=== PATIENT | female | born 1995 | race Caucasian/White ===

== ENCOUNTER 2024-05-25 09:34 | Emergency (ER) | payer OTHER ==
--- NOTE | 2024-05-25 10:23 | ED ---
Headache HPI - General Chief Complaint: Headache Stated Complaint: 23wks preg/migraine Time Seen by Provider: 05/25/24 09:48 Source: patient, RN notes reviewed Mode of arrival: ambulatory Limitations: no limitations - History of Present Illness Initial Comments: This is a 28-year-old female, [id number], with no significant history presenting to the emergency department at approximately 23 weeks gestation for headache over the past 3 days. Patient states that she has also been experiencing congestion, rhinorrhea, body aches, cough. She denies blurry/double vision, right upper quadrant abdominal pain, or history of migraine headaches. She denies abdominal pain, nausea, vomiting, urinary complaints. Patient follows with OB team at [facility]. denies previous gestational hypertension, gestational diabetes, preeclampsia or eclampsia - Related Data Allergies Allergy/AdvReac Type Severity Reaction Status Date / Time clindamycin Allergy Rash/Hives Verified 05/25/24 09:39 Review of Systems ROS Statement: Those systems with pertinent positive or pertinent negative responses have been documented in the HPI. ROS Other: All systems not noted in ROS Statement are negative. Past Medical History Past Medical History: No Reported History History of Any Multi-Drug Resistant Organisms: None Reported Past Surgical History: Section Past Psychological History: No Psychological Hx Reported Smoking Status: Never smoker Past Alcohol Use History: None Reported Past Drug Use History: None Reported General Exam Limitations: no limitations General appearance: alert, in no apparent distress Eye exam: Present: normal appearance, PERRL, EOMI. Absent: scleral icterus, conjunctival injection, periorbital swelling ENT exam: Present: normal exam, mucous membranes moist Neck exam: Present: normal inspection. Absent: tenderness, meningismus, lymphadenopathy Respiratory exam: Present: normal lung sounds bilaterally. Absent: respiratory distress, wheezes, rales, rhonchi, stridor Cardiovascular Exam: Present: regular rate, normal rhythm, normal heart sounds. Absent: systolic murmur, diastolic murmur, rubs, gallop, clicks GI/Abdominal exam: Present: soft, normal bowel sounds. Absent: distended, tenderness, guarding, rebound, rigid Extremities exam: Present: normal inspection, full ROM, normal capillary refill. Absent: tenderness, pedal edema, joint swelling, calf tenderness Back exam: Present: normal inspection Neurological exam: Present: alert, oriented X3, CN II-XII intact Skin exam: Present: warm, dry, intact, normal color. Absent: rash Course Vital Signs 05/25/24 05/25/24 09:37 13:22 Temperature 98.4 F 98.9 F Pulse Rate 73 81 Respiratory 20 14 Rate Blood Pressure 130/84 126/68 O2 Sat by Pulse 99 99 Oximetry Medical Decision Making - Medical Decision Making Was pt. sent in by a medical professional or institution (, MAIKEL, DRUG ABUSE SOCIAL WORKER, urgent care, hospital, or retirement...) When possible be specific @ -No Did you speak to anyone other than the patient for history (EMS, parent, family, police, friend...)? What history was obtained from this source @ -No Did you review nursing and triage notes (agree or disagree)? Why? @ -I reviewed and agree with nursing and triage notes Were old charts reviewed (outside hosp., previous admission, EMS record, old EKG, old radiological studies, urgent care reports/EKG's, retirement records)? Report findings @ -No old charts were reviewed Differential Diagnosis (chest pain, altered mental status, abdominal pain women, abdominal pain men, vaginal bleeding, weakness, fever, dyspnea, syncope, headache, dizziness, GI bleed, back pain, seizure, CVA, palpatations, mental health, musculoskeletal)? @ -Differential Headache: Migraine, tension, cluster, carbon monoxide, central venous thrombosis, pension karma temporal arteritis, acute closure glaucoma, intercranial hemorrhage, mastoiditis, sinusitis, head injury, this is not meant to be an all-inclusive list. EKG interpreted by me (3pts min.). @ -None X-rays interpreted by me (1pt min.). @ -None done CT interpreted by me (1pt min.). @ -None done U/S interpreted by me (1pt. min.). @ -None done What testing was considered but not performed or refused? (CT, X-rays, U/S, labs)? Why? @ -None What meds were considered but not given or refused? Why? @ -None Did you discuss the management of the patient with other professionals (professionals i.e. , MAIKEL, DRUG ABUSE SOCIAL WORKER, lab, RT, psych nurse, social problems specialist, embroidery worker, teacher, chief juvenile probation officer, cyanide case hardener)? Give summary @ -No Was smoking cessation discussed for >3mins.? @ -No Was critical care preformed (if so, how long)? @ -No Were there social determinants of health that impacted care today? How? (Homelessness, low income, unemployed, alcoholism, drug addiction, transportation, low edu. Level, literacy, decrease access to med. care, [place] [facility], rehab)? @ -No Was there de-escalation of care discussed even if they declined (Discuss DNR or withdrawal of care, Hospice)? DNR status @ -No What co-morbidities impacted this encounter? (DM, HTN, Smoking, COPD, CAD, Cancer, CVA, ARF, Chemo, Hep., AIDS, mental health diagnosis, sleep apnea, m orbid obesity)? @ -None Was patient admitted / discharged? Hospital course, mention meds given and r oute, prescriptions, significant lab abnormalities, going to OR and other pertinent info. @ -Discharge. 28-year-old female 23 weeks gestation with headache. Neurological examination no acute deficits. Negative for brudzinski and Kernig sign with no concern for meningitis. vitals are stable. Patient is provided with migraine cocktail including fluids, Tylenol, Benadryl, and magnesium. labs reveal mild dehydration with a CO2 of 19, chloride 111, urinalysis with trace ketones. Negative COVID, flu, RSV. On reevaluation after medication ministration patient states that she is feeling better. Recommend that patient increase hydration at home and continue Tylenol as needed for pain up to 1 g every 8 hours. Patient has follow-up appointment scheduled with OB and recommend she continues to follow with OB. Discussed with Dr. Muniz Undiagnosed new problem with uncertain prognosis? @ -No Drug Therapy requiring intensive monitoring for toxicity (Heparin, Nitro, I nsulin, Cardizem)? @ -No Were any procedures done? @ -No Diagnosis/symptom? @ -Headache during , 23 weeks gestation Acute, or Chronic, or Acute on Chronic? @ -acute Uncomplicated (without systemic symptoms) or Complicated (systemic symptoms)? @ -uncomplicated Side effects of treatment? @ -No Exacerbation, Progression, or Severe Exacerbation? @ -No Poses a threat to life or bodily function? How? (Chest pain, USA, PA, pneumonia, PE, COPD, DKA, ARF, appy, cholecystitis, CVA, Diverticulitis, Homicidal, Suicidal, threat to staff... and all critical care pts) @ -No - Lab Data Result diagrams: 05/25/24 10:36 05/25/24 10:36 Lab Results 05/25/24 05/25/24 05/25/24 Range/Units 10:36 10:36 10:36 WBC 11.0 H (3.8-10.6) k/uL RBC 3.76 L (3.80-5.40) m/uL Hgb 11.3 L (11.4-16.0) gm/dL Hct 33.9 L (34.0-46.0) % MCV 90.0 (80.0-100.0) fL MCH 30.1 (25.0-35.0) pg MCHC 33.4 (31.0-37.0) g/dL RDW 13.4 (11.5-15.5) % Plt Count 279 (150-450) k/uL MPV 6.9 PT 10.0 (10.0-12.5) sec INR 0.9 (<1.2) APTT 23.5 (22.0-30.0) sec Sodium (137-145) mmol/L Potassium (3.5-5.1) mmol/L Chloride (98-107) mmol/L Carbon Dioxide (22-30) mmol/L Anion Gap mmol/L BUN (7-17) mg/dL Creatinine (0.52-1.04) mg/dL Est GFR (CKD-EPI)AfAm (>60 ml/min/1.73 sqM) Est GFR (CKD-EPI)NonAf (>60 ml/min/1.73 sqM) Glucose (74-99) mg/dL Calcium (8.4-10.2) mg/dL Magnesium (1.6-2.3) mg/dL Total Bilirubin (0.2-1.3) mg/dL AST (14-36) U/L ALT (4-34) U/L Alkaline Phosphatase (38-126) U/L Total Protein (6.3-8.2) g/dL Albumin (3.5-5.0) g/dL Urine Color Colorless Urine Appearance Clear (Clear) Urine pH 6.0 (5.0-8.0) Ur Specific [place] 1.007 (1.001-1.035) Urine Protein Negative (Negative) Urine Glucose (UA) Negative (Negative) Urine Ketones Trace H (Negative) Urine Blood Negative (Negative) Urine Nitrite Negative (Negative) Urine Bilirubin Negative (Negative) Urine Urobilinogen <2.0 (<2.0) mg/dL Ur Leukocyte Esterase Trace H (Negative) Urine RBC <1 (0-5) /hpf Urine WBC 2 (0-5) /hpf Ur Squamous Epith Cells 2 (0-4) /hpf Urine Mucus Rare H (None) /hpf Influenza Type A (PCR) (Not Detectd) Influenza Type B (PCR) (Not Detectd) RSV (PCR) (Not Detectd) SARS-CoV-2 (PCR) (Not Detectd) 05/25/24 05/25/24 Range/Units 10:36 10:45 WBC (3.8-10.6) k/uL RBC (3.80-5.40) m/uL Hgb (11.4-16.0) gm/dL Hct (34.0-46.0) % MCV (80.0-100.0) fL MCH (25.0-35.0) pg MCHC (31.0-37.0) g/dL RDW (11.5-15.5) % Plt Count (150-450) k/uL MPV PT (10.0-12.5) sec INR (<1.2) APTT (22.0-30.0) sec Sodium 134 L (137-145) mmol/L Potassium 4.5 (3.5-5.1) mmol/L Chloride 111 H (98-107) mmol/L Carbon Dioxide 19 L (22-30) mmol/L Anion Gap 4 mmol/L BUN 5 L (7-17) mg/dL Creatinine 0.64 (0.52-1.04) mg/dL Est GFR (CKD-EPI)AfAm >90 (>60 ml/min/1.73 sqM) Est GFR (CKD-EPI)NonAf >90 (>60 ml/min/1.73 sqM) Glucose 93 (74-99) mg/dL Calcium 9.1 (8.4-10.2) mg/dL Magnesium 1.8 (1.6-2.3) mg/dL Total Bilirubin 0.5 (0.2-1.3) mg/dL AST 14 (14-36) U/L ALT 10 (4-34) U/L Alkaline Phosphatase 52 (38-126) U/L Total Protein 6.6 (6.3-8.2) g/dL Albumin 3.5 (3.5-5.0) g/dL Urine Color Urine Appearance (Clear) Urine pH (5.0-8.0) Ur Specific [place] (1.001-1.035) Urine Protein (Negative) Urine Glucose (UA) (Negative) Urine Ketones (Negative) Urine Blood (Negative) Urine Nitrite (Negative) Urine Bilirubin (Negative) Urine Urobilinogen (<2.0) mg/dL Ur Leukocyte Esterase (Negative) Urine RBC (0-5) /hpf Urine WBC (0-5) /hpf Ur Squamous Epith Cells (0-4) /hpf Urine Mucus (None) /hpf Influenza Type A (PCR) Not Detected (Not Detectd) Influenza Type B (PCR) Not Detected (Not Detectd) RSV (PCR) Not Detected (Not Detectd) SARS-CoV-2 (PCR) Not Detected (Not Detectd) Disposition Clinical Impression: Headache, 23 weeks gestation of Disposition: HOME SELF-CARE Condition: Good Instructions (If sedation given, give patient instructions): Acute Headache (ED) Additional Instructions: Please return to the Emergency Department if symptoms worsen or any other zeb rns. Due to increased oral hydration. You may take up to 1 g of Tylenol as needed every 8 hours for pain relief. Follow-up as scheduled with OB for further evaluation. Is patient prescribed a controlled substance at d/c from ED?: No Referrals: Shon Renae MD [Primary Care Provider] - 1-2 days Time of Disposition: 12:33
[2024-05-25 10:41] LABS: HCT 33.9 % (34.0-46.0); HGB 11.3 gm/dL (11.4-16.0); MCH 30.1 pg (25.0-35.0); MCHC 33.4 g/dL (31.0-37.0); Mean Platelet Volume 6.9; Platelet Count 279 k/uL (150-450); RBC 3.76 m/uL (3.80-5.40); RDW 13.4 % (11.5-15.5)
[2024-05-25 10:50] LABS: INR 0.9 (<1.2); Partial Thromboplastin Time 23.5 sec (22.0-30.0)
[2024-05-25 11:03] LABS: ALT 10 U/L (4-34); AST 14 U/L (14-36); African American GFR (CKD) >90 (>60 ml/min/1.73 sqM); Albumin 3.5 g/dL (3.5-5.0); Alkaline Phosphatase 52 U/L (38-126); Anion Gap 4 mmol/L; Blood Urea Nitrogen 5 mg/dL (7-17); Calcium 9.1 mg/dL (8.4-10.2); Carbon Dioxide 19 mmol/L (22-30); Chloride 111 mmol/L (98-107); Glucose 93 mg/dL (74-99); Magnesium 1.8 mg/dL (1.6-2.3); Non-African American GFR(CKD) >90 (>60 ml/min/1.73 sqM); Potassium 4.5 mmol/L (3.5-5.1); Sodium 134 mmol/L (137-145); Total Bilirubin 0.5 mg/dL (0.2-1.3); Total Protein 6.6 g/dL (6.3-8.2)
[2024-05-25 11:32] LABS: Appearance,Urine Clear (Clear); Bilirubin,Urine Negative (Negative); Blood,Urine Negative (Negative); Color,Urine Colorless; Glucose,Urine (UA) Negative (Negative); Ketones,Urine Trace (Negative); Leukocyte Esterase,Urine Trace (Negative); Mucus,Urine Rare /hpf; Nitrite,Urine Negative (Negative); Protein,Urine Negative (Negative); RBC,Urine <1 /hpf (0-5); Specific Gravity,Urine 1.007 (1.001-1.035); Squamous Epithelial Cell,Urine 2 /hpf (0-4); Urobilinogen,Urine <2.0 mg/dL (<2.0); WBC,Urine 2 /hpf (0-5)
[2024-05-25] MEDS: ACETAMINOPHEN TAB 500 MG TAB PO STA (11:39)
[2024-05-25] MEDS: ONDANSETRON 4 MG/2 ML VIAL IVP STA (11:40)
[2024-05-25] MEDS: MAGNESIUM SULFATE-D5W PMX 1 GM in DEXTROSE/WATER 1 100ML.BAG IVPB ONE (11:40)
[2024-05-25] MEDS: diphenhydrAMINE 50 MG/ML 1 ML VIAL IVP STA (11:40)
[2024-05-25] MEDS: SODIUM CHLORIDE 0.9% 1,500 ML IV STA (11:41)
[2024-05-25 13:23] VITALS: BP 126/68; PULSE 81; RESP 14; TEMP 98.9
== END 2024-05-25 13:40 | disposition home or self-care (01) ==
LOC: EC 09:34
DX: O99.352 Diseases of the nervous system complicating pregnancy, second trimester (principal); R51.9 Headache, unspecified; Z88.1 Allergy status to other antibiotic agents; Z3A.23 23 weeks gestation of pregnancy
CPT/HCPCS: 36415; 80053; 83735; 85027; 85610; 85730; 81001; 87636; 99284; 96365; 96366; 96375 ×2; J1200; J2405; J3475

== ENCOUNTER 2024-08-24 00:20 | Outpatient (CLI) | payer OTHER ==
[2024-08-24] MEDS: LACTATED RINGERS 1,000 ML IV ONE (00:50)
[2024-08-24] MEDS: LACTATED RINGERS 1,000 ML IV SCH (01:50)
[2024-08-24 05:22] VITALS: BP 137/81; PULSE 74; RESP 16; TEMP 97.4
--- NOTE | 2024-08-28 00:12 | P.MSEPDOC ---
Presenting Problems - Arrival Data Date of Arrival on Unit: 08/24/24 Time of Arrival on Unit: 00:20 Mode of Transport: EMS - Complaint OB-Reason for Admission/Chief Complaint: Possible Onset of Labor Comment: contractions for 6 minutes apart for hours Medical History - Information : 5 Para: 3 Term: 3 : 0 Abortions: Spontaneous or Elective: 1 Number of Living Children: 3 - Gestational Age Gestational Age by DIANA (wks/days): 37 Weeks and 0 Days - History Complications: Prior Review of Systems - Review of Systems Constitutional: No problems Breast: No problems ENT: No problems Cardiovascular: No problems Respiratory: No problems Gastrointestinal: No problems Genitourinary: No problems Musculoskeletal: No problems Neurological: No problems Skin: No problems Vital Signs - Temperature Temperature: 97.4 F Temperature Source: Oral - Pulse Right Brachial Pulse Rate: 74 Pulse Assessment Method: Automatic Cuff - Respirations Respiratory Rate: 16 Oxygen Delivery Method: Room Air O2 Sat by Pulse Oximetry: 100 - Blood Pressure Right Arm Blood Pressure: 137/81 Blood Pressure Mean: 99 Blood Pressure Source: Automatic Cuff Medical Screen Scoring - Cervical Exam Dilation (cm): 1 Effacement (%): 70 Station: -2 Membranes: Intact - Uterine Contractions Frequency From (mins): 2 Frequency To (mins): 5 Duration From (seconds): 50 Duration To (seconds): 70 Intensity: Moderate Resting: Soft to palpation - Assessment - Baby A Baseline FHR: 145 Heart Rate - NICHD Category: Category I (Normal) NST: Reactive Physician Notification - Physician Notified Physician Notified Date: 08/24/24 Physician Notified Time: 00:40 Physician: Dash Mckee New Order Received: Yes - Notification Comment Comment: 0040- Dr. Flynn called with report on patient that presents to triage by EMS due to transportation issues. Patient states that she has been having contractions for 6 minutes apart for hours. Cervical exam /-2, contractions 2 minutes apart. Patient has a baseline of 150, variables down to 90bpm noted upon application of ultrasound. Patient repositioned and heart tones now 150 baseline with mininal varability. Patient to be rechecked in 1 hour and IV fluids ordered. 0200- report given to Dr. Mckee. Patients cervical exam remains the same after 1 hour. Contractions 2-4 minutes apart. Patient rates pain 6/10 but talking through contractions. Blood pressures reviewed. Patient to be recehcked in a few hours. 0500- Dr. Mckee called with report. heart tones have been cat 1 since last time report was given, patient continues to contract every 2-5minutes, patient has beel sleeping and appears comfortable, and cervical exam remains unchanged. Patient to be discharged home. Maternal Triage Index - Stat/Priority 1 Stat Priority 1: No - Urgent/Priority 2 Urgent Priority 2: No - Prompt/Priority 3 Prompt Priority 3: No - Non-Urgent/Priority 4 Non-Urgent Priority 4: Yes Criteria Met for Priority 4: 37 0/7 contractions Disposition - Disposition OB Disposition: Discharge to home Discharge Date: 08/24/24 Discharge Time: 05:30 I agree with the RN Medical Screening Exam: Yes Physician's MSE Comment: I have neither seen nor examined the patient. Case reviewed; plan agreed upon as documented in EMR&OBIX.: Yes Diagnosis: RELATED CONDITIONS, UNSPECIFIED, THIRD TRIMESTER
== END 2024-08-24 05:30 ==
LOC: FBPOP 00:20
PROVIDERS: ATTEND Obstetrics & Gynecology
DX: O26.93 Pregnancy related conditions, unspecified, third trimester (principal); O99.333 Smoking (tobacco) complicating pregnancy, third trimester; Z3A.37 37 weeks gestation of pregnancy; Z88.1 Allergy status to other antibiotic agents
CPT/HCPCS: 59025; 96365; 96367; G0463; 99214

== ENCOUNTER 2024-09-13 10:26 | Inpatient (IN) | payer OTHER ==
[2024-09-13] MEDS ORDERED: miSOPROStoL 200 MCG TAB PO PRN (10:31)
[2024-09-13] MEDS ORDERED: METHYLERGONOVINE 0.2 MG/ML 1 ML AMP IM PRN (10:31)
[2024-09-13] MEDS ORDERED: TRANEXAMIC 1,000 MG/100ML-NACL 1,000 MG in EMPTY BAG 1 BAG IV PRN (10:31)
[2024-09-13] MEDS ORDERED: OXYTOCIN 10 UNIT/ML 1 ML VIAL IM PRN (10:31)
[2024-09-13] MEDS ORDERED: CARBOPROST TROMETHAMINE 250 MCG/ML 1 ML AMP IM PRN (10:31)
[2024-09-13] MEDS ORDERED: OXYTOCIN 30 UNITS/500 ML NS 30 UNIT in SALINE 1 500ML.BAG IV SCH (10:45)
[2024-09-13] MEDS: LACTATED RINGERS 1,000 ML IV SCH ×2 (10:58→16:18)
[2024-09-13] MEDS: CITRIC ACID-SODIUM CITRATE 15 ML CUP PO ONE (11:05)
[2024-09-13 11:19] LABS: Basophils % (A) 0 %; Eosinophils # (A) 0.1 k/uL (0-0.7); Eosinophils % (A) 1 %; HCT 35.3 % (34.0-46.0); HGB 11.1 gm/dL (11.4-16.0); Hypochromasia Slight; Lymphocytes # (A) 2.1 k/uL (1.0-4.8); Lymphocytes % (A) 26 %; MCH 26.2 pg (25.0-35.0); MCHC 31.4 g/dL (31.0-37.0); MCV 83.5 fL (80.0-100.0); Mean Platelet Volume 7.7; Monocytes # (A) 0.3 k/uL (0-1.0); Monocytes % (A) 4 %; Neutrophils # (A) 5.5 k/uL (1.3-7.7); Neutrophils % (A) 68 %; Platelet Count 296 k/uL (150-450); RBC 4.23 m/uL (3.80-5.40); RDW 15.1 % (11.5-15.5); WBC 8.1 k/uL (3.8-10.6)
[2024-09-13 11:28] LABS: Amphetamine Screen,Urine Not Detected (NotDetected); Barbiturate Screen,Urine Not Detected (NotDetected); Benzodiazepines Screen,Urine Not Detected (NotDetected); Cocaine Screen,Urine Not Detected (NotDetected); Methadone Screen, Urine Not Detected (NotDetected); Opiate Screen,Urine Not Detected (NotDetected); Oxycodone Screen, Urine Not Detected (NotDetected); Phencyclidine Screen,Urine Not Detected (NotDetected); Tricyclic Antidepressant,Urine Not Detected (NotDetected); Urn Cannabinoid Scrn Not Detected (NotDetected)
[2024-09-13] MEDS ORDERED: NALBUPHINE (ANES) 10 MG/ML - 1 ML AMP ONE (12:36)
[2024-09-13] MEDS ORDERED: KETOROLAC 30 MG/ML 1 ML VIAL ONE (12:36)
[2024-09-13] MEDS ORDERED: OXYTOCIN 10 UNIT/ML 1 ML VIAL ONE (12:36)
[2024-09-13] MEDS ORDERED: ONDANSETRON 4 MG/2 ML VIAL ONE (12:36)
[2024-09-13] MEDS ORDERED: MORPHINE SULFATE (PF) 0.3 MG/0.3 ML SYR ONE (12:36)
[2024-09-13] MEDS ORDERED: PHENYLEPHRINE 10 MG/ML VIAL ONE (12:36)
[2024-09-13] MEDS ORDERED: METOCLOPRAMIDE 5 MG/ML 2 ML VIAL IVP PRN (13:35)
[2024-09-13] MEDS ORDERED: diphenhydrAMINE 50 MG CAP PO PRN (13:35)
[2024-09-13] MEDS ORDERED: ZOLPIDEM 5 MG TAB PO PRN (13:35)
[2024-09-13] MEDS ORDERED: ONDANSETRON 4 MG/2 ML VIAL IVP PRN (13:35)
[2024-09-13] MEDS ORDERED: NALOXONE 0.4 MG/ML 1 ML VIAL IV PRN (13:35)
[2024-09-13] MEDS ORDERED: diphenhydrAMINE 25 MG CAP PO PRN (13:35)
[2024-09-13] MEDS ORDERED: diphenhydrAMINE 50 MG/ML 1 ML VIAL IVP PRN ×2 (13:35)
--- NOTE | 2024-09-13 13:42 | P.HPOB ---
History of Present Illness H&P Date: 09/13/24 Chief Complaint: 39-2/7 weeks, repeat section, undesired fertility The patient is a 28-year-old 5 para 3-0-1-3 admitted at 39-2/7 weeks as established by last menstrual period and confirmed by 21-week ultrasound. She is admitted for repeat low-transverse section with intraoperative bilateral salpingectomy. The risks and complications of the procedure as well as the permanent nature of salpingectomy have been thoroughly discussed and she has understood and agreed to proceed. On labor and delivery, all signs are reassuring with a category 1 heart rate tracing. Her has otherwise been essentially uncomplicated. She is rubella nonimmune. Group B strep status is negative. Obstetrical history: 5 para 3-0-1-3 with 3 term sections. Current statistics are listed in history of present illness. EDC of 09/18/2024 was established by last menstrual period and confirmed by 21-week ultrasound. Laboratory workup demonstrates a blood type of A+ with a negative antibody screen. Rubella status is nonimmune. The remainder of the laboratory workup was within normal limits. 1 hour Glucola was normal and group B strep status is negative. Gynecologic history: Unremarkable with no history of any infections to include STDs. Review of Systems Review of systems is confined to history of present illness. Past Medical History Past Medical History: No Reported History History of Any Multi-Drug Resistant Organisms: None Reported Past Surgical History: Section Additional Past Surgical History / Comment(s): cs x3, wisdom teeth removed Past Psychological History: Anxiety, Depression Additional Psychological History / Comment(s): treated with Lexapro and Welbutrin prior to . Will start again after delivery Smoking Status: Never smoker Past Alcohol Use History: None Reported Past Drug Use History: Marijuana - Past Family History Mother Family Medical History: Hypertension, Thyroid Disorder Medications and Allergies Home Medications Medication Instructions Recorded Confirmed Type Vit No.179/Iron/Folic 1 tab PO DAILY 09/13/24 09/13/24 History [ Tablet] Allergies Allergy/AdvReac Type Severity Reaction Status Date / Time clindamycin Allergy Rash/Hives Verified 05/25/24 09:39 Exam Vital Signs Temp Pulse Resp BP Pulse Ox 09/13/24 10:30 96.2 F L 74 18 158/91 100 Intake and Output 09/12/24 09/13/24 09/13/24 22:59 06:59 14:59 Other: Weight 109.769 kg In general, this is a well-developed, well-nourished white female in no acute distress. Her heart has a regular rhythm and rate without murmur. Her lungs are clear to auscultation bilaterally in all cooper. Her abdomen is gravid, nondistended, has normal active bowel sounds, soft, nontender, and without any palpable masses aside from uterine fundus. Her extremities are without any cyanosis, clubbing, or edema and are nontender to palpation bilaterally. Digital cervical examination is deferred. Results Result Diagrams: 09/13/24 10:55 Abnormal Lab Results - Last 24 Hours (Table) 09/13/24 Range/Units 10:55 Hgb 11.1 L (11.4-16.0) gm/dL Assessment and Plan (1) Family planning Current Visit: Yes Status: Acute Code(s): Z30.09 - ENCOUNTER FOR OT GENERAL CNSL AND ADVICE ON CONTRACEPTION SNOMED Code(s): 709596033 (2) Previous section Current Visit: Yes Status: Acute Code(s): Z98.891 - HISTORY OF UTERINE SCAR FROM PREVIOUS SURGERY SNOMED Code(s): 548348597 (3) Term Current Visit: Yes Status: Acute Code(s): Z34.90 - ENCNTR FOR SUPRVSN OF NORMAL , UNSP, UNSP TRIMESTER SNOMED Code(s): 63338083 Plan: Patient is admitted for repeat low-transverse section with intraoperative bilateral salpingectomy. The procedures were thoroughly discussed and again she understands the permanent nature of salpingectomy.
--- NOTE | 2024-09-13 13:47 | P.OP ---
Date of Procedure: 09/13/24 Preoperative Diagnosis: 39-2/7 weeks, previous section x 3 #2. Undesired fertility Postoperative Diagnosis: Same Procedure(s) Performed: #1. Repeat low-transverse section #2. Intraoperative bilateral salpingectomy Anesthesia: spinal Surgeon: Dash Mckee Musculoskeletal Physiotherapist #1: Binta Crowe Estimated Blood Loss (ml): 650 IV fluids (ml): 800 Urine output (ml): 150 Pathology: none sent Condition: stable Disposition: floor Operative Findings: The patient was taken to the operating room where she was delivered of a viable 7 pound 10 ounce baby girl with Apgars of 9 at 1 minute and 9 at 5 minutes. The uterus, tubes, and ovaries were entirely normal to inspection though there was some moderate scarring at the level of the bladder flap which was left in place as it was distal to the intended site of incision. There was some scarring also at the left fallopian tube which was managed by removing the fallopian tube entirely. Both fallopian tubes were removed entirely and sent as a single specimen to pathology for diagnosis after reaffirming the patient's wishes for permanent sterilization. The placenta was delivered manually, intact, and grossly normal with a grossly normal three-vessel cord. Description of Procedure: The patient was prepped and draped in usual fashion after spinal anesthesia was administered by the anesthesiologist. A Pfannenstiel incision was made through her pre-existing scar and extended into the abdominal cavity without difficulty. The bladder peritoneum was noted to be distal to the intended site of incision was left intact. A 2 cm incision was made in the transverse plane of the lower uterine segment to enter the uterus at which time clear fluid was noted. The incision was extended both directions using the bandage scissors. The head was delivered up and through the incision where the nose and mouth were thoroughly suction. The remainder of the infant was delivered onto the field where the cord was doubly clamped, cut, and the infant passed resuscitative measures with weight and Apgars as noted above. A segment of cord was doubly clamped, cut, and set aside should cord gases become necessary. The placenta was delivered manually and intact as noted above. The uterus was exteriorized and the anterior cavity the uterus swept of any remaining placental or membranous fragments. The margins of the uterine incision were grasped with Odonnell clamps and the incision closed in a single running locking stitch of 0 chromic catgut from margin to margin. Pneumostasis appeared to be excellent. The posterior cul-de-sac was suctioned with a guard followed by laparotomy sponge. After reaffirming the patient's desire for permanent sterilization, the right fallopian tube was grasped at its fimbriated end and elevated and removed from its underlying tissues using a LigaSure device to the cornual insertion. A similar operation was carried out on the left side though there was some adhesiv e disease that was managed with the LigaSure device as well. Both tubes were sent to pathology in a single specimen. Hemostasis for the surgical sites appear to be excellent. The uterus was replaced within the abdominal cavity and the gutters swept of any remaining blood, fluid, or clot. The exam incision was reexamined and found to be hemostatic. The parietal peritoneum was loosely reapproximated and the layer of muscles made hemostatic with the Bovie. The fascia was closed with a single running stitch of 0 Vicryl proceeding from lateral margin to lateral margin. The subcutaneous tissues were irrigated, made hemostatic with the Bovie, and reapproximated with a running stitch of 3-0 plain catgut. The skin was reapproximated with a running subcuticular stitch of 4-0 Vicryl followed by half-inch Steri-Strips placed with Mastisol.
[2024-09-13] MEDS: MEASLES-MUMPS-RUBELLA VACC/PF 0.5 ML VIAL SQ ONE (15:58)
[2024-09-13] MEDS: ACETAMINOPHEN TAB 500 MG TAB PO SCH (16:17)
[2024-09-13] MEDS: KETOROLAC 15 MG/ML 1 ML VIAL IVP PRN (20:21)
[2024-09-13] MEDS: SENNOSIDES-DOCUSATE SODIUM 1 EACH TAB PO SCH (20:22)
[2024-09-13] MEDS: IBUPROFEN 800 MG TAB PO SCH (21:04)
[2024-09-14] MEDS: IBUPROFEN 800 MG TAB PO SCH (04:10)
[2024-09-14 05:50] LABS: Basophils % (A) 0 %; Eosinophils # (A) 0.1 k/uL (0-0.7); Eosinophils % (A) 1 %; HCT 29.4 % (34.0-46.0); Hypochromasia Slight; Lymphocytes % (A) 22 %; MCH 26.2 pg (25.0-35.0); MCHC 31.3 g/dL (31.0-37.0); MCV 83.7 fL (80.0-100.0); Mean Platelet Volume 7.6; Monocytes # (A) 0.3 k/uL (0-1.0); Monocytes % (A) 3 %; Neutrophils # (A) 6.4 k/uL (1.3-7.7); Neutrophils % (A) 72 %; Platelet Count 257 k/uL (150-450); RBC 3.51 m/uL (3.80-5.40); RDW 15.1 % (11.5-15.5)
[2024-09-14 06:58] LABS: HGB 9.2 gm/dL (11.4-16.0)
--- NOTE | 2024-09-14 08:33 | P.PNOBGPC ---
Subjective - Subjective Patient reports: Reports appetite normal, Reports voiding normally, Reports pain well controlled, Reports ambulating normally : doing well Objective - Vital Signs Latest vital signs: Vital Signs Temp Pulse Resp BP Pulse Ox 09/14/24 00:03 97.7 F 62 18 116/76 98 09/13/24 20:30 98.1 F 81 17 135/82 98 09/13/24 16:00 96.9 F L 58 L 18 138/68 99 09/13/24 15:30 55 L 138/68 09/13/24 15:15 97.0 F L 57 L 18 130/72 100 09/13/24 15:00 54 L 119/67 09/13/24 14:45 96.5 F L 58 L 18 131/69 100 09/13/24 14:30 96.5 F L 57 L 18 120/67 100 09/13/24 14:15 50 L 122/60 99 09/13/24 14:00 96.0 F L 59 L 18 125/75 99 09/13/24 13:45 96.0 F L 58 L 18 120/64 100 09/13/24 13:30 96.4 F L 61 18 122/62 99 09/13/24 10:30 96.2 F L 74 18 158/91 100 Intake and Output 09/13/24 09/14/24 09/14/24 22:59 06:59 14:59 Output Total 1000 200 Balance -1000 -200 Output: Urine 800 200 Uretheral (Marie) 400 Output, Quantitative 200 Blood Loss Other: # Voids 1 1 - Exam Extremities: Present: normal Abdomen: Present: normal appearance, soft. Absent: distention, tenderness Incision: Present: normal, dry, intact Uterus: Present: normal, firm (The uterine fundus is tonic and appropriately tender just below the umbilicus.) - Labs Labs: Abnormal Lab Results - Last 24 Hours (Table) 09/13/24 09/14/24 Range/Units 10:55 05:28 RBC 3.51 L (3.80-5.40) m/uL Hgb 11.1 L 9.2 L D (11.4-16.0) gm/dL Hct 29.4 L (34.0-46.0) % Assessment and Plan (1) Family planning Current Visit: Yes Status: Acute Code(s): Z30.09 - ENCOUNTER FOR OTH GENERAL CNSL AND ADVICE ON CONTRACEPTION SNOMED Code(s): 882986104 (2) Previous section Current Visit: Yes Status: Acute Code(s): Z98.891 - HISTORY OF UTERINE SCAR FROM PREVIOUS SURGERY SNOMED Code(s): 627214815 (3) Term Current Visit: Yes Status: Acute Code(s): Z34.90 - ENCNTR FOR SUPRVSN OF NORMAL , UNSP, UNSP TRIMESTER SNOMED Code(s): 71397893 (4) S/P section Current Visit: Yes Status: Acute Code(s): Z98.891 - HISTORY OF UTERINE SCAR FROM PREVIOUS SURGERY SNOMED Code(s): 518866316 Plan: Continue routine and postoperative care. I have encouraged the patient to ambulate in the hallways routinely. I would anticipate discharge home tomorrow pending no complications.
--- NOTE | 2024-09-14 11:57 | P.PN ---
Progress Note - Text 09/14/24 628am 28-year-old female status post resection spinal Duramorph. Patient seen evaluated for postop pain control, she has a VAS of 2 with no complaint of nausea vomiting and mild pruritus.
[2024-09-14] MEDS: SIMETHICONE 80 MG CHEWABLE PO PRN (13:39)
[2024-09-15 08:43] VITALS: BP 112/68; PULSE 68; RESP 16; TEMP 98.6
--- NOTE | 2024-09-15 09:07 | P.DS ---
Providers Date of admission: 09/13/24 10:26 Expected date of discharge: 09/15/24 Attending physician: Dash Mckee Primary care physician: Stated None - Discharge Diagnosis(es) (1) Family planning Current Visit: Yes Status: Acute (2) Previous section Current Visit: Yes Status: Acute (3) Term Current Visit: Yes Status: Acute (4) S/P section Current Visit: Yes Status: Acute Hospital Course: Patient is a 28-year-old 5 para 3-0-1-3 admitted at 39-2/7 weeks by good dating parameters. She is admitted for repeat low-transverse section and has requested intraoperative bilateral salpingectomy. Her has been otherwise uncomplicated and group B strep status is negative. She is rubella nonimmune. She was taken to the operating room where she was delivered of a viable 7 pound 10 ounce baby girl with Apgars of 9 at 1 minute and 9 at 5 minutes in an uncomplicated fashion. Her and postoperative courses have been unremarkable with vital signs remaining stable and her temperature was afebrile throughout. She was deemed stable for discharge on and postoperative day #2 and was discharged home to follow-up in the office in 2 weeks for an incision check in 6 weeks routinely. Discharge instructions included calling for any significantly increased bleeding or foul-smelling lochia, significantly increased fever abdominal pain, perineal complaints, breast complaints, incisional complaints, or anything else that concerned her. She was additionally instructed to have nothing in the vagina for at least 6 weeks time to include intercourse and to abstain from any heavy lifting over the same period of time. She was lastly instructed to do no driving until off of all pain medications or 2 weeks time, whichever came first. She understood her instructions and agrees to follow-up as noted above. Discharge medications included any normal home medications as well as afnw-nne-esefaal analgesic pain medications. She was additionally given a prescription for oxycodone 5 mg, 1-2 p.o. every 6 hours as needed pain, #20 dispensed with no refills. Maternal blood type is a positive and rubella status is nonimmune. She was to receive the MMR vaccination prior to discharge as result. Discharge hemoglobin and hematocrit were 9.2 and 29.4 respectively. Procedures: 1. Repeat low-transverse section #2. Intraoperative bilateral salpingectomy Patient Condition at Discharge: Stable Plan - Discharge Summary New Discharge Prescriptions: No Action Vit No.179/Iron/Folic [ Tablet] 1 tab PO DAILY Discharge Medication List Vit No.179/Iron/Folic [ Tablet] 1 tab PO DAILY 09/13/24 [History] Follow up Appointment(s)/Referral(s): Dash Mckee MD [STAFF PHYSICIAN] - 09/27/24 1:45 pm (post appointment 10/28/24 at 1:15 pm) Discharge Disposition: HOME SELF-CARE
== END 2024-09-15 12:00 | disposition home or self-care (01) | DRG 539 ==
LOC: 4FBP 10:26
PROVIDERS: ADMIT Obstetrics & Gynecology; ATTEND Obstetrics & Gynecology
PROC: 0UT70ZZ Resection of Bilateral Fallopian Tubes, Open Approach (ICD-10-PCS; 2024-09-13)
PROC: 10D00Z1 Extraction of Products of Conception, Low, Open Approach (ICD-10-PCS; principal; 2024-09-13 12:00)
DX: O34.211 Maternal care for low transverse scar from previous cesarean delivery (principal); L29.9 Pruritus, unspecified; Z37.0 Single live birth; Z30.2 Encounter for sterilization; Z3A.39 39 weeks gestation of pregnancy
CPT/HCPCS: 80306; 85025; 86850; 86900; 86901; 88302; 90707